=== PATIENT | female | born 1960 | race Caucasian/White ===

== ENCOUNTER 2021-10-13 12:21 | Emergency (ER) | payer OTHER ==
[2021-10-13] MEDS ORDERED: Morphine 2 MG/ML SYRINGE IVPUSH ONE (14:34)
[2021-10-13] MEDS ORDERED: Acetaminophen/oxyCODONE 325-5 MG Tab PO PRN (16:08)
== END 2021-10-13 17:44 | disposition home or self-care (01) ==
LOC: JP.ED 12:21
DX: S62.352A Nondisplaced fracture of shaft of third metacarpal bone, right hand, initial encounter for closed fracture (principal); S50.11XA Contusion of right forearm, initial encounter; S89.91XA Unspecified injury of right lower leg, initial encounter; F17.210 Nicotine dependence, cigarettes, uncomplicated; W22.09XA Striking against other stationary object, initial encounter
CPT/HCPCS: 73080; 73110; 73130; 73562; 99283; A9270